=== PATIENT | male | born 1965 | race Two or more races ===

== ENCOUNTER 2018-06-26 04:33 | Emergency (ER) | payer SELFPAY ==
[~2018-06-26] VITALS: Ht 162.6 cm; Wt 80.4 kg
[2018-06-26 04:35] VITALS: BP 106/63
--- NOTE | 2018-06-26 05:06 | NUR ---
PT ELOPED OUT AMBULANCE BAY DOORS, FAMILY FOLLOWED.
== END 2018-06-26 05:08 | disposition left against medical advice (07) ==
LOC: ED 05:02
DX: Z53.21 Procedure and treatment not carried out due to patient leaving prior to being seen by health care provider (principal)